=== PATIENT | male | born 1980 | race Caucasian/White ===

== ENCOUNTER 2022-09-26 20:59 | Emergency (ER) | payer MEDICAID, SELFPAY ==
[2022-09-26 21:20] VITALS: BP 138/76; PULSE 85; RESP 18; TEMP 36.6; O2SAT 98; BMI 25.1
[2022-09-26 21:31] VITALS: PULSE 102; RESP 20
--- NOTE | 2022-09-26 21:33 | W.ED.PSYCHS ---
HPI - Psych General: Chief Complaint: Psychiatric Symptoms Stated Complaint: SI Time Seen by Provider: 09/26/22 21:33 History of Present Illness: Mr. Louis is a 42-year-old gentleman with history of depression though not on treatment presenting to the emergency department due to suicidal ideation. He reports worsening symptoms for a number of months that have now become severe. He has numerous plans to hurt himself and believes that his family would be better off without him. He is scared that if he is left alone he will hurt himself. Does endorse history of psychiatric hospitalization approximately 10 years ago however is not seen psychiatric care provider regularly since then. Otherwise denies medical complaints. No other specific changes in health, exacerbating, or alleviating factors identified. Per affidavit from law enforcement and family patient has said multiple times that he wants to . Additionally he was walking in the middle of the road. Onset (ago): month(s) Duration: getting worse History of same: Yes Relieving factors: none Exacerbating factors: none Associated psychiatric symptoms: depression, suicidal ideation and racing thoughts Review of Systems General: Reports: 10 or more systems reviewed and unremarkable except in HPI and below PFSH ED PFSH: Medical History (Updated 10/05/22 @ 00:01 by ADOLFO Berry) Depression Surgical History (Updated 09/26/22 @ 21:43 by Angelo Bowens MD) No significant past surgical history Physical Exam Const: COMMON NORMALS: alert GENERAL APPEARANCE: cooperative and well developed HENMT: COMMON NORMALS: normocephalic and atraumatic HEAD & SCALP: normocephalic and atraumatic Eye: COMMON NORMALS: conjunctivae normal CONJUNCTIVA: Yes conjunctivae normal SCLERA: sclerae normal Neck/C-Spine: COMMON NORMALS: supple GENERAL: Yes trachea midline Resp: COMMON NORMALS: normal respiratory effort and clear to auscultation bilaterally EFFORT & INSPECTION: Yes able to speak in complete sentences AUSCULTATION: clear to auscultation bilaterally Cardio: COMMON NORMALS: regular rate and regular rhythm RATE: regular rate RHYTHM: regular rhythm GI: COMMON NORMALS: Soft to palpation PALPATION: Yes Soft to palpation and No Tenderness to palpation present (GI) Extremity: GENERAL: Yes normal exam except as noted and No edema Neuro: COMMON NORMALS: moves all extremities SENSORIUM/ORIENTATION: Yes alert and No Orientation impaired Psych: COMMON NORMALS: mental status grossly normal, Normal thought process present and speech normal ATTITUDE: Yes Guarded attititude/behavior present ACTIVITY/MOTOR BEHAVIOR: Yes restless SPEECH: Yes normal speech MOOD & AFFECT: Yes depressed mood and Yes anxious THOUGHT PROCESS: Normal thought process present THOUGHT CONTENT: Yes Suicidality present ATTENTION/CONCENTRATION: Yes attention grossly intact and Yes concentration grossly intact INSIGHT: Good insight present (Psych) JUDGEMENT: Fair judgement present (Psych) Course Vital Signs: Vital signs: Vital Signs Temperature 98 F 09/26/22 21:20 Pulse Rate 102 H 09/27/22 10:43 Respiratory Rate 18 09/26/22 22:01 Blood Pressure 138/76 09/26/22 21:20 Pulse Oximetry 98 09/27/22 10:43 Oxygen Delivery Me thod 09/26/22 21:20 [facility] - Psych Medical Decision Making 42-year-old gentleman with history of untreated depression presenting to the emergency department due to suicidal ideation with multiple plans. He reports hopeless feeling and made statements to law enforcement and family regarding wanting to . Patient is calm and cooperative, somewhat odd affect and anxious/nervous. Patient has no medical complaints and is nontoxic on exam. EKG notable for sinus rhythm, no STEMI, normal intervals. Single PVC. Labs with mild leukocytosis which is nonspecific in the absence of infectious symptoms, hemoglobin normal. Metabolic panel without acute derangement. Salicylate and acetaminophen level negative. Ethyl alcohol level elevated at 262 mg/dL. Viral studies negative. Urinalysis pending. Chest x-ray with no lobar consolidation or pneumothorax. Given severity of symptoms and worsening course I believe that inpatient management is appropriate. Based on ED evaluation at this point there is no obvious condition that would preclude the patient from initiating management of psychiatric concerns. We do not have psych bed availability at our facility at this time and therefore we will we will look for transfer. Medical Records I reviewed the patient's medical records. Lab Data I reviewed the patient's lab results. 09/26/22 21:54 09/26/22 21:54 Radiology Impressions Chest X-Ray 09/26/22 22:45 IMPRESSION: No acute findings. Laboratory Results WBC 13.7 10^3/uL (4.0-10.0) H 09/26/22 21:54 RBC 4.90 10^6/uL (4.1-5.3) 09/26/22 21:54 Hgb 15.0 g/dL (11.7-16.6) 09/26/22 21:54 Hct 45.1 % (42.0-52.0) 09/26/22 21:54 MCV 92.0 fl (80-94) 09/26/22 21:54 MCH 30.6 pg (28.0-34.0) 09/26/22 21:54 MCHC 33.3 g/dL (30.0-36.0) 09/26/22 21:54 RDW 12.8 % (12.1-15.1) 09/26/22 21:54 Plt Count 263 10^3/cmm (130-400) 09/26/22 21:54 MPV 10.0 fL (7.4-10.4) 09/26/22 21:54 Neut % (Auto) 56.8 % 09/26/22 21:54 Lymph % (Auto) 34.3 % 09/26/22 21:54 [place] % (Auto) 6.3 % 09/26/22 21:54 Eos % (Auto) 1.5 % 09/26/22 21:54 Baso % (Auto) 0.5 % 09/26/22 21:54 Neut # (Auto) 7.79 10^3/uL (1.8-7.7) H 09/26/22 21:54 Lymph # (Auto) 4.7 10^3/uL (0.8-4.8) 09/26/22 21:54 [place] # (Auto) 0.9 10^3/uL (0.2-0.9) 09/26/22 21:54 Eos # (Auto) 0.2 10^3/uL (0.0-0.8) 09/26/22 21:54 Baso # (Auto) 0.1 10^3/uL (0.0-0.1) 09/26/22 21:54 Nucleated RBC % (auto) 0 % 09/26/22 21:54 Nucleated RBCs # 0.0 /100WBC 09/26/22 21:54 Sodium 144 mmol/L (136-145) 09/26/22 21:54 Potassium 3.6 mmol/L (3.5-5.1) 01/12/23 21:54 Chloride 106 mmol/L (98-107) 09/26/22 21:54 Carbon Dioxide 25 mmol/L (22-29) 09/26/22 21:54 Anion Gap 16.6 (5-19) 09/26/22 21:54 BUN 12 mg/dL (6-20) 09/26/22 21:54 Creatinine 0.6 mg/dL (0.7-1.2) L 09/26/22 21:54 GFR Calculation 148.5 mL/min (90-130) H 09/26/22 21:54 Glucose 85 mg/dL (65-115) 09/26/22 21:54 Calculated Osmolality 297 mOsm/kg (285-295) H 09/26/22 21:54 Calcium 9.0 mg/dL (8.5-10.5) 09/26/22 21:54 Total Bilirubin 0.2 mg/dL (0.15-1.2) 09/26/22 21:54 AST 29 U/L (0-40) 09/26/22 21:54 ALT 16 U/L (0-41) 09/26/22 21:54 Alkaline Phosphatase 86 U/L (40-130) 09/26/22 21:54 Total Protein 8.0 g/dL (6.6-8.7) 09/26/22 21:54 Albumin 5.0 g/dL (3.5-5.2) 09/26/22 21:54 Globulin 3.0 g/dL (1.3-4.6) 09/26/22 21:54 TSH 0.73 uIU/mL (0.27-4.20) 09/26/22 21:54 Urine Color Yellow (Yellow) 09/27/22 03:19 Urine Appearance Clear (CLEAR) 09/27/22 03:19 Urine pH 5 (5-7) 09/27/22 03:19 Ur Specific [place] 1.025 (1.005-1.030) 09/27/22 03:19 Urine Protein Neg (Negative) 09/27/22 03:19 Urine Glucose (UA) Norm (Normal) 09/27/22 03:19 Urine Ketones Negative (Negative) 09/27/22 03:19 Urine Blood Neg (Negative) 09/27/22 03:19 Urine Nitrate Negative (Negative) 09/27/22 03:19 Urine Bilirubin Neg (Negative) 09/27/22 03:19 Urine Urobilinogen Norm mg/dL (Negative) 09/27/22 03:19 Ur Leukocyte Esterase Negative (Negative) 09/27/22 03:19 Salicylates < 0.3 mg/dL (3-10) L 09/26/22 21:54 Urine Opiates Screen Negative ng/mL (Negative) 09/27/22 03:19 Acetaminophen < 5.0 ug/mL (10-30) L 09/26/22 21:54 Ur Barbiturates Screen Negative ng/mL (Negative) 09/27/22 03:19 Ur Phencyclidine Scrn Negative ng/mL (Negative) 09/27/22 03:19 Ur Amphetamines Screen Negative ng/mL (Negative) 09/27/22 03:19 U Benzodiazepines Scrn Positive ng/mL (Negative) H 09/27/22 03:19 Urine Cocaine Screen Negative ng/mL (Negative) 09/27/22 03:19 U Marijuana (THC) Screen Positive ng/mL (Negative) H 09/27/22 03:19 Ethyl Alcohol 111 mg/dL (0-10) H 09/27/22 06:18 Influenza Type A Ag negative (Negative) 09/26/22 23:00 Influenza Type B Ag negative (Negative) 09/26/22 23:00 SARS-CoV-2 Ag (Rapid) negative (Negative) 09/26/22 23:00 Discharge Plan Discharge Patient Disposition: Xfer Psychiatric Hosp Clinical Impression: Suicidal ideation, Depression, Alcohol abuse Condition: Stable Coding Level of Care Code ED Montessori Toddler Teacher for Yoselyn Fwd Exam Comprehensive
[2022-09-26 22:01] VITALS: PULSE 112; RESP 18
[2022-09-26] MEDS: LORazepam 1 mg Tablet PO (22:04)
[2022-09-26 22:13] LABS: Basophils # 0.1 10^3/uL (0.0-0.1); Basophils % 0.5 %; Eosinophils # 0.2 10^3/uL (0.0-0.8); Eosinophils % 1.5 %; Hematocrit 45.1 % (42.0-52.0); Lymphocytes # 4.7 10^3/uL (0.8-4.8); Lymphocytes % 34.3 %; Mean Corpuscular HGB Conc 33.3 g/dL (30.0-36.0); Mean Corpuscular Hemoglobin 30.6 pg (28.0-34.0); Monocytes # 0.9 10^3/uL (0.2-0.9); Monocytes % 6.3 %; Neutrophils # 7.79 10^3/uL (1.8-7.7); Neutrophils % 56.8 %; Nucleated Red Blood Cells % 0 %; Platelet Count 263 10^3/cmm (130-400); Red Cell Distribution Width 12.8 % (12.1-15.1); White Blood Count 13.7 10^3/uL (4.0-10.0)
--- NOTE | 2022-09-26 22:22 | PC.NURSE ---
wants notified of changes please. Move to units, seizure, medication change. Can reach at [phone].
--- NOTE | 2022-09-26 22:45 | XRR_ITS ---
PROCEDURE INFORMATION: Exam: XR Chest Exam date and time: 09/26/2022 10:50 PM Age: 42 years old Clinical indication: Other: AMS; Additional info: Psych clearance TECHNIQUE: Imaging protocol: Radiologic exam of the chest. Views: 1 view. COMPARISON: No relevant prior studies available. FINDINGS: Lungs: Unremarkable. No consolidation. Pleural spaces: Unremarkable. No pleural effusion. No pneumothorax. Heart/Mediastinum: Unremarkable. No cardiomegaly. Bones/joints: Unremarkable. XR/XR chest 1V portable [id number] IMPRESSION: No acute findings.
[2022-09-26 23:28] LABS: Acetaminophen < 5.0 ug/mL (10-30); Alanine Aminotransferase 16 U/L (0-41); Alcohol Level 262 mg/dL (0-10); Alkaline Phosphatase 86 U/L (40-130); Anion Gap 16.6 (5-19); Aspartate Amino Transferase 29 U/L (0-40); Blood Urea Nitrogen 12 mg/dL (6-20); Carbon Dioxide 25 mmol/L (22-29); Chloride 106 mmol/L (98-107); Glomerular Filtration Rate 148.5 mL/min (90-130); Glucose 85 mg/dL (65-115); Osmolality Calculated 297 mOsm/kg (285-295); Potassium 3.6 mmol/L (3.5-5.1); Salicylate < 0.3 mg/dL (3-10); Sodium 144 mmol/L (136-145); Total Bilirubin 0.2 mg/dL (0.15-1.2)
[2022-09-26 23:30] LABS: Thyroid Stimulating Hormone 0.73 uIU/mL (0.27-4.20)
--- NOTE | 2022-09-26 23:30 | ECG_ITS ---
[facility] Test Date: 2022-09-26 Pat Name: Darren Louis Department: Room: Gender: Male Sales And Marketing Executive: : 1980 Requested By: Angelo Bowens Order Number: [id number] Carlos MD: Anabella Butt M.D. Measurements Intervals [place] Rate: 62 P: 53 UT: 136 QRS: 80 QRSD: 98 T: 55 QT: 406 QTc: 415 Interpretive Statements SINUS RHYTHM WITH OCCASIONAL ECTOPIC PREMATURE COMPLEXES Compared to ECG 05/20/2015 00:43:03 No significant changes Electronically Signed On 09-27-2022 16:59:16 [employer]WORK ENGINE[employer] by Anabella Butt M.D. [id number]
[2022-09-26 23:32] LABS: Influenza A by IFA negative (Negative); Influenza B by IFA negative (Negative); SARS Covid-2 Antigen negative (Negative)
[2022-09-27 03:23] LABS: Add Urine Microscopic? NO; Charge for UA Resulting for Rev
[2022-09-27 03:38] LABS: Amphetamines Screen Urine Negative (Negative); Barbiturates Screen Urine Negative (Negative); Benzodiazepines Screen Urine Positive (Negative); Cocaine Screen Urine Negative (Negative); Opiate Screen Urine Negative (Negative); PCP Screen Urine Negative (Negative); THC Screen Urine Positive (Negative)
[2022-09-27 03:44] LABS: Bilirubin Urine Neg (Negative); Blood Urine Neg (Negative); Glucose Urine UA Norm (Normal); Ketones Urine Negative (Negative); Leukocyte Esterase Urine Negative (Negative); Nitrate Urine Negative (Negative); Protein Urine Neg (Negative); Specific Gravity, Urine 1.025 (1.005-1.030); Urine Appearance Clear (CLEAR); Urine Color Yellow (Yellow); Urobilinogen Urine Norm (Negative); pH Urine 5 (5-7)
[2022-09-27 04:05] LABS: Alcohol Level 162 mg/dL (0-10)
[2022-09-27 06:00] VITALS: PULSE 97; O2SAT 95
[2022-09-27 06:41] LABS: Alcohol Level 111 mg/dL (0-10)
--- NOTE | 2022-09-27 08:25 | PC.NURSE ---
called report to psych facility [id number]
--- NOTE | 2022-09-27 08:26 | PC.NURSE ---
called and updated per PT request
[2022-09-27 10:43] VITALS: PULSE 102; O2SAT 98
== END 2022-09-27 10:44 ==
PROVIDERS: Emergency Provider Emergency Medicine
DX: R45.851 Suicidal ideations (principal); F32.A Depression, unspecified; F10.10 Alcohol abuse, uncomplicated; Z20.822 Contact with and (suspected) exposure to COVID-19
CPT/HCPCS: 36415; 71045; 80053; 80306; 80307; 81003; 84443; 85025; 87426; 87804; 93005; 99284